=== PATIENT | male | born 1995 | race Caucasian/White ===

== ENCOUNTER 2017-01-27 13:10 | Emergency (ER) | payer SELFPAY | END 2017-01-27 15:15 | disposition home or self-care (01) | LOC: ED 13:10 | DX: S92.101A Unspecified fracture of right talus, initial encounter for closed fracture (principal); X50.1XXA Overexertion from prolonged static or awkward postures, initial encounter; Y93.89 Activity, other specified; Y99.8 Other external cause status; Y92.830 Public park as the place of occurrence of the external cause | CPT/HCPCS: 29515; 99284 ==